=== PATIENT | male | born 1965 | race Caucasian/White ===

== ENCOUNTER 2019-12-19 14:39 | Inpatient (IN) | payer BC, OTHER ==
[~2019-12-19] VITALS: Ht 175.3 cm; Wt 75.7 kg
[2019-12-19 16:29] LABS: Basophils # (auto) 0 10 ^3/uL (0-0.2); Basophils % (auto) 0.2 % (0.0-2.0); Eosinophils # (auto) 0.3 10 ^3/uL (0-0.8); Eosinophils % (auto) 2.3 % (0.0-7.0); Hemoglobin 16.8 g/dL (13.5-17.5); Lymphocytes % (auto) 7.3 % (10.0-50.0); Mean Corpuscular Hemoglobin 32.9 pg (28.0-32.0); Mean Corpuscular Hgb Conc. 33.1 g/dL (32.0-36.0); Mean Corpuscular Volume 99.6 fL (80.0-100.0); Monocytes # (auto) 0.8 10 ^3/uL (0-1.3); Monocytes % (auto) 5.8 % (0.0-12.0); Neutrophils # (auto) 11.3 10 ^3/uL (1.6-8.6); Neutrophils % (auto) 84.4 % (37.0-80.0); Nucleated Red Blood Cells % 0.1 %; Platelet Count (auto) 193 10^3/uL (140-450); Red Blood Cells 5.12 10^6/uL (4.5-5.90); White Blood Cell 13.4 10^3/uL (4.4-10.8)
[2019-12-19 16:39] LABS: Albumin 2.7 g/dL (3.4-5.0); Calcium 8.6 mg/dL (8.5-10.1); Potassium 4.5 mmol/L (3.5-5.1)
[2019-12-19 16:42] LABS: BUN/Creatinine Ratio 7.2
[2019-12-19 16:45] LABS: Bilirubin, Total 3.3 mg/dL (0.2-1.0); Total Protein 7.4 g/dL (6.4-8.2)
[2019-12-19 16:49] LABS: INR 1.71 (0.9-1.15); Partial Thromboplastin Time 34.5 sec (23.0-31.2)
[2019-12-19] MEDS ORDERED: MORPHINE SULF INJ 2 MG/ML SYRINGE 1ML IV PRN ×2 (17:15→19:15)
[2019-12-19] MEDS ORDERED: NITROGLYCERIN 0.4 MG SL TAB SL PRN ×2 (17:15→19:15)
[2019-12-19] MEDS ORDERED: MULT-1058 PO (17:52)
[2019-12-19] MEDS ORDERED: GARL200T PO (17:52)
[2019-12-19] MEDS ORDERED: CYAN100T7 PO (17:52)
[2019-12-19] MEDS ORDERED: MAGN400T40 PO (17:52)
[2019-12-19] MEDS ORDERED: OMEG306C PO (17:52)
[2019-12-19] MEDS ORDERED: HYDROcodone-ACET 5/325MG TAB PO PRN (19:15)
[2019-12-19] MEDS ORDERED: THIAMINE 100mg/ml INJ (200mg/2ml VIAL) IV ONE (19:15)
[2019-12-19] MEDS ORDERED: PANTOPRAZOLE 40 MG/10 ML VIAL INJ IV ONE (19:15)
[2019-12-19] MEDS ORDERED: ALUM & MAG HYDROX-SIMETH LIQ(MAALOX) 30 ML PO PRN (19:15)
[2019-12-19] MEDS ORDERED: LACTULOSE 20Gm/30ML SOLN PO PRN (19:15)
[2019-12-19] MEDS ORDERED: FOLIC ACID 1 MG TAB PO ONE (19:15)
[2019-12-19] MEDS ORDERED: CLINDAMYCIN 600MG IV 50 ML IV ONE (19:15)
[2019-12-19] MEDS ORDERED: LORazepam 2MG/ML-1ML VIAL IV PRN (19:15)
[2019-12-19] MEDS ORDERED: LORazepam 0.5 MG TAB PO PRN (19:15)
[2019-12-19] MEDS ORDERED: MULTIPLE VITAMINS W/ MINERALS TAB PO ONE (19:15)
[2019-12-19] MEDS: cefTRIAXone 1GM/50ML D5W 50 ML IV SCH (19:35)
[2019-12-19] MEDS: MORPHINE SULF INJ 2 MG/ML SYRINGE 1ML IV PRN (20:01)
[2019-12-19 20:14] LABS: Cholesterol 92 mg/dL (< 200); Triglycerides 110 mg/dL (< 150)
[2019-12-19 20:18] LABS: HDL Cholesterol 20 mg/dL (40-59); LDL Cholesterol 69 mg/dL (< 100)
--- NOTE | 2019-12-19 20:40 | NUR ---
arrival note pt arrived via wheelchair. pt is on room air. pt ambulated to hospital bed.
[2019-12-19 20:42] LABS: Urine Bacteria FEW /hpf (None Seen); Urine Blood Negative /uL (Negative); Urine Mucus FEW (None Seen); Urine Specific Gravity 1.021 (1.001-1.035); Urine WBC 3 /hpf (0 - 3)
[2019-12-19 20:50] VITALS: BP 151/99
[2019-12-19 20:58] LABS: Alcohol, Urine < 3.0 mg/dL (0-10); Amphetamine Screen, Urine NEGATIVE (NEGATIVE); Barbiturate Scree,Urine NEGATIVE (NEGATIVE); Benzodiazephine Screen, Urine NEGATIVE (NEGATIVE); Cannabinoid Screen, Urine NEGATIVE (NEGATIVE); Cocaine Screen, Urine NEGATIVE (NEGATIVE); Opiate Scree,Urine NEGATIVE (NEGATIVE); Phencyclidine Screen, Urine NEGATIVE (NEGATIVE)
[2019-12-19 22:00] VITALS: BP 151/99
[2019-12-19] MEDS: SUCRALFATE 1 GM TAB PO SCH (22:50)
[2019-12-19] MEDS: CLINDAMYCIN 600MG IV 50 ML IV SCH (22:50)
[2019-12-19] MEDS: PROPRANOLOL HCL 20 MG TAB PO SCH (22:51)
[2019-12-20] MEDS: MORPHINE SULF INJ 2 MG/ML SYRINGE 1ML IV PRN ×4 (02:11→16:18)
[2019-12-20 05:00] VITALS: BP 119/88
[2019-12-20] MEDS: CLINDAMYCIN 600MG IV 50 ML IV SCH ×3 (06:15→21:36)
[2019-12-20] MEDS: SUCRALFATE 1 GM TAB PO SCH ×4 (06:16→21:37)
[2019-12-20] MEDS: ONDANSETRON HCL 4 MG/2 ML VIAL IV PRN ×2 (06:27→11:50)
--- NOTE | 2019-12-20 06:55 | NUR ---
Respiratory note: POX CHECK, PT WAS RESTING COMFORTABLY, NO RESP DISTRESS NOTED. HR 77, RR 18, SPO2 93% ON ROOM AIR.
--- NOTE | 2019-12-20 07:20 | NUR ---
closing note pt resting in semi fowlers with HOB at 30 degrees. no s/s of distress. Endorsed care to day shift RN Josefina.
[2019-12-20 08:00] VITALS: BP 151/99
--- NOTE | 2019-12-20 08:00 | NUR ---
ASSESSMENT NOTE PT IS ALERT ORIENTED X4, SITTING AT THE SIDE OF THE BED, NO DISTRESS NOTED, ABDOMEN FIRM AND DISTENDED, PAIN 0/10, ABLE TO VERBALIS HIS NEEDS, AMBULATE NEEDED, MADE AWARE OF PLAN OF CARE, CALL LIGHT WITHIN REACH
[2019-12-20 09:00] VITALS: BP 117/84
[2019-12-20] MEDS: cefTRIAXone 1GM/50ML D5W 50 ML IV SCH (09:00)
[2019-12-20] MEDS: THIAMINE HCL 100 MG TAB PO SCH (09:01)
[2019-12-20] MEDS: SPIRONOLACTONE 25 MG TAB PO SCH (09:01)
[2019-12-20] MEDS: FOLIC ACID 1 MG TAB PO SCH (09:01)
[2019-12-20] MEDS: PROPRANOLOL HCL 20 MG TAB PO SCH ×2 (09:02→21:39)
[2019-12-20] MEDS: MULTIPLE VITAMINS W/ MINERALS TAB PO SCH (09:02)
[2019-12-20] MEDS ORDERED: PANTOPRAZOLE 40 MG/10 ML VIAL INJ IV SCH (10:00)
--- NOTE | 2019-12-20 10:30 | NUR ---
DR MARINELLI AT BED SIDE WITH PHYSICAL ASSESSMENT AND OBTAINING THE H& P, DR MARINELLI EXPLAIN TO PT OF WHAT IS GOING ON WITH PATIENT'S LIVER, INCLUDING LABS WITH THE PLAN OF CARE, DR MARINELLI EDUCATED PT THAT HE IS IN EARLY STAGE OF LIVER CIRRHOSIS FOR UNKNOWN TIME, AND ADVICE HIM TO STOP DRINKING BEER OR ALCOHOL, PT VERBALIS UNDERSTANDING
--- NOTE | 2019-12-20 11:15 | NUR ---
GI CONSULT DR QUINTERO AT BED SIDE FOLLOWING UP ON PT, WITH NEW ORDERS, PT VERBALIS UNDERSTANDING
--- NOTE | 2019-12-20 11:20 | NUR ---
NPO PT MADE AWARE THAT HE HAVE TO STAY NPO FOR LIVER US, VERBALIS UNDERSTANDING
[2019-12-20] MEDS ORDERED: chlordiazePOXIDE HCL 25 MG CAP PO PRN (11:30)
[2019-12-20] MEDS ORDERED: FUROSEMIDE 40 MG/4 ML VIAL IV SCH (11:45)
[2019-12-20 12:00] VITALS: BP 123/82
[2019-12-20] MEDS: chlordiazePOXIDE HCL 5 MG CAP PO SCH ×3 (12:00→21:39)
--- NOTE | 2019-12-20 12:06 | NUR ---
PT IS NEGATIVE FOR COVID, PT WILL BE TRANSFER TO [address] [place] [address], NURSE ABDULLAHI HENDRICKS
--- NOTE | 2019-12-20 12:16 | NUR ---
REPORT GIVEN TO MIKE HENDRICKS FOR ALL THE UPDATE
--- NOTE | 2019-12-20 12:45 | NUR ---
TRANSF[facility] PT TO [facility] VIA A WHEELCHAIR, RA, ALERT ORIENTED X4, ABDULLAHI HENDRICKS AWARE
--- NOTE | 2019-12-20 12:50 | NUR ---
Transfer from [facility] Patient A/O x4, no SOB, no s/s distress, denies pain at this time. Patient is ambulatory and on room air. Plan of care discussed, encouraged to call for assistance prn. Bed in low and locked position, call light within reach. Will continue to monitor q1hr and prn.
[2019-12-20 20:00] VITALS: BP 107/77
--- NOTE | 2019-12-20 20:57 | NUR ---
PT MOVED TO 286B BECAUSE HE STATES HIS ROOMATE AND HIM ARE NOT GETTING ALONG.
[2019-12-20] MEDS: PANTOPRAZOLE 40 MG TAB PO SCH (21:39)
[2019-12-20 22:00] VITALS: BP 101/60
[2019-12-21 05:00] VITALS: BP 116/85
[2019-12-21] MEDS: chlordiazePOXIDE HCL 5 MG CAP PO SCH ×2 (05:08→12:00)
[2019-12-21] MEDS: CLINDAMYCIN 600MG IV 50 ML IV SCH ×2 (05:08→14:00)
[2019-12-21] MEDS: SUCRALFATE 1 GM TAB PO SCH ×2 (05:09→10:55)
[2019-12-21 06:35] LABS: Basophils % (auto) 0.5 % (0.0-2.0); Eosinophils # (auto) 0.4 10 ^3/uL (0-0.8); Monocytes # (auto) 0.9 10 ^3/uL (0-1.3); Red Blood Cells 4.54 10^6/uL (4.5-5.90)
[2019-12-21 06:39] LABS: Basophils # (auto) 0 10 ^3/uL (0-0.2); Eosinophils % (auto) 4.2 % (0.0-7.0); Hematocrit 45.4 % (41.0-53.0); Hemoglobin 15.5 g/dL (13.5-17.5); Lymphocytes % (auto) 10.2 % (10.0-50.0); Monocytes % (auto) 8.9 % (0.0-12.0); Neutrophils # (auto) 7.5 10 ^3/uL (1.6-8.6); Neutrophils % (auto) 76.2 % (37.0-80.0); Nucleated Red Blood Cells % 0.2 %; Platelet Count (auto) 182 10^3/uL (140-450); Red Cell Distribution Width 13.6 % (11.8-14.3); White Blood Cell 9.9 10^3/uL (4.4-10.8)
[2019-12-21 06:50] LABS: INR 1.46 (0.9-1.15)
[2019-12-21 06:56] LABS: Potassium 4.4 mmol/L (3.5-5.1)
[2019-12-21 07:04] LABS: Albumin 2.4 g/dL (3.4-5.0); BUN/Creatinine Ratio 12.5; Bilirubin, Total 2.7 mg/dL (0.2-1.0); Calcium 8.3 mg/dL (8.5-10.1); Total Protein 6.3 g/dL (6.4-8.2)
[2019-12-21 08:00] VITALS: BP 115/75
[2019-12-21] MEDS: MULTIPLE VITAMINS W/ MINERALS TAB PO SCH (08:50)
[2019-12-21] MEDS: cefTRIAXone 1GM/50ML D5W 50 ML IV SCH (08:50)
[2019-12-21] MEDS: FOLIC ACID 1 MG TAB PO SCH (08:51)
[2019-12-21] MEDS: PANTOPRAZOLE 40 MG TAB PO SCH (08:51)
[2019-12-21] MEDS: PROPRANOLOL HCL 20 MG TAB PO SCH (08:51)
[2019-12-21] MEDS: THIAMINE HCL 100 MG TAB PO SCH (08:52)
[2019-12-21] MEDS: SPIRONOLACTONE 25 MG TAB PO SCH (08:52)
[2019-12-21 09:23] VITALS: BP 115/75
[2019-12-21] MEDS ORDERED: FUROSEMIDE 20 MG TAB PO SCH (10:00)
--- NOTE | 2019-12-21 11:32 | NUR ---
patient took off tele monitor, refusing to have it back on, stated, "there's nothing wrong with my heart, the doctor already said I'll be discharged. tele overhead crane technician at [phone] made aware
[2019-12-21 12:38] VITALS: BP 120/69
--- NOTE | 2019-12-21 13:40 | NUR ---
DR. CARRASCO AT BEDSIDE, DISCUSSED DISCHARGE PLAN WITH PATIENT. WILL CARRY OUT DISCHARGE ORDERS.
--- NOTE | 2019-12-21 14:15 | NUR ---
PATIENT REFUSED 1400 SCHEDULED IV ANTIBIOTIC BECAUSE HE IS BEING DISCHARGED AND DOES NOT WANT TO CONTINUE ANY TREATMENT.
[2019-12-21 14:29] VITALS: BP 115/75
--- NOTE | 2019-12-21 15:28 | NUR ---
PATIENT DISCHARGED HOME PER MD'S ORDER. PATIENT A/O X4, NO S/S DISTRESS NOTED. PATIENT VERBALIZED UNDERSTANDING OF DISCHARGE SUMMARY, NEW PRESCRIPTIONS, INSTRUCTED TO CALL FOR FOLLOW UP ON SUNDAY. IV DISCONTINUED AND TELE BOX RETURNED TO ICU.
== END 2019-12-21 15:28 | disposition home or self-care (01) | DRG 433 ==
LOC: ER 14:39 → TELE 14:40 → UNDOADMIN 14:40 → TELE-EAST 14:40 → ER 20:32 → TELE-WESTW 12-20 12:50
PROVIDERS: ADMIT Hospitalist; ATTEND Hospitalist
DX: K70.31 Alcoholic cirrhosis of liver with ascites (principal); D68.4 Acquired coagulation factor deficiency; E87.1 Hypo-osmolality and hyponatremia; K76.6 Portal hypertension; K29.20 Alcoholic gastritis without bleeding; K70.11 Alcoholic hepatitis with ascites; R16.2 Hepatomegaly with splenomegaly, not elsewhere classified; K40.90 Unilateral inguinal hernia, without obstruction or gangrene, not specified as recurrent; F10.129 Alcohol abuse with intoxication, unspecified; Y90.8 Blood alcohol level of 240 mg/100 ml or more; Z20.828 Contact with and (suspected) exposure to other viral communicable diseases; Z79.899 Other long term (current) drug therapy
CPT/HCPCS: 36415; 71046; 74176; 76705; 80053; 80061; 80307; 80320; 81001; 83036; 83690; 84484; 85025; 85610; 85730; 86850; 86900; 86901; 87040; 87086; 87426; 93005; C9113; G0378; J0696; J2405; J3490